=== PATIENT | male | born 1995 | race Caucasian/White ===

== ENCOUNTER 2019-10-19 17:35 | Emergency (ER) | payer SELFPAY ==
[~2019-10-19] VITALS: Ht 172.7 cm; Wt 79.4 kg
[2019-10-19 20:58] VITALS: BP 125/80
[2019-10-19] MEDS ORDERED: HYDROcodone-ACET 5/325MG TAB PO ONE (21:00)
== END 2019-10-19 22:32 | disposition home or self-care (01) ==
LOC: ER 17:35
DX: S06.0X0A Concussion without loss of consciousness, initial encounter (principal); S30.1XXA Contusion of abdominal wall, initial encounter; N39.0 Urinary tract infection, site not specified; M62.838 Other muscle spasm; K42.9 Umbilical hernia without obstruction or gangrene; V43.52XA Car driver injured in collision with other type car in traffic accident, initial encounter; Y93.89 Activity, other specified; Y99.8 Other external cause status; Y92.410 Unspecified street and highway as the place of occurrence of the external cause
CPT/HCPCS: 70450; 71046; 72040; 72170; 74176; 81002

== ENCOUNTER → 2019-12-16 | Emergency (ER) | payer SELFPAY ==
[~2019-12-16] VITALS: Ht 172.7 cm; Wt 85.7 kg
[~2019-12-16] MED LIST: ALBUTEROL SULF 2.5 MG/0.5ML(0.5%) NEB SOLN NEB ONE; IPRATROPIUM BROM 0.5 MG/2.5ML INH SOL NEB ONE
[2019-12-16 00:52] VITALS: BP 144/73
== END | disposition home or self-care (01) ==
LOC: ER 00:36
DX: J20.9 Acute bronchitis, unspecified (principal)
CPT/HCPCS: 71045; 94640; 99283; J7644

== ENCOUNTER 2019-12-18 16:09 | Emergency (ER) | payer SELFPAY ==
[~2019-12-18] VITALS: Ht 172.7 cm; Wt 77.1 kg
[2019-12-18 17:56] LABS: Basophils # (auto) 0 10 ^3/uL (0-0.2); Basophils % (auto) 0.2 % (0.0-2.0); Eosinophils # (auto) 0 10 ^3/uL (0-0.8); Eosinophils % (auto) 0.2 % (0.0-7.0); Hematocrit 49.3 % (41.0-53.0); Hemoglobin 16.4 g/dL (13.5-17.5); Lymphocytes # (auto) 2.6 10 ^3/uL (0.4-5.4); Lymphocytes % (auto) 19.4 % (10.0-50.0); Mean Corpuscular Hemoglobin 31.3 pg (28.0-32.0); Mean Corpuscular Hgb Conc. 33.3 g/dL (32.0-36.0); Mean Corpuscular Volume 94.1 fL (80.0-100.0); Monocytes # (auto) 0.9 10 ^3/uL (0-1.3); Monocytes % (auto) 6.5 % (0.0-12.0); Neutrophils # (auto) 9.8 10 ^3/uL (1.6-8.6); Neutrophils % (auto) 73.7 % (37.0-80.0); Platelet Count (auto) 326 10^3/uL (140-450); Red Blood Cells 5.24 10^6/uL (4.5-5.90); Red Cell Distribution Width 13.2 % (11.8-14.3); White Blood Cell 13.3 10^3/uL (4.4-10.8)
[2019-12-18 18:11] LABS: Albumin 4.5 g/dL (3.4-5.0); Anion Gap 8 (5-15); BUN/Creatinine Ratio 13.8; Blood Urea Nitrogen 15 mg/dL (7-18); Calcium 9.6 mg/dL (8.5-10.1); Carbon Dioxide 25 mmol/L (21-32); Chloride 103 mmol/L (98-107); GFR African American 106 mL/min; GFR Non-African American 88 mL/min; Glucose 104 mg/dL (74-106); Potassium 3.9 mmol/L (3.5-5.1); Sodium 136 mmol/L (136-145)
[2019-12-18 18:16] LABS: Alanine Aminotransferase 40 U/L (16-61); Alkaline Phosphatase 66 U/L (45-117); Aspartate Aminotransferase 26 U/L (15-37); Bilirubin, Total 0.9 mg/dL (0.2-1.0); Total Protein 8.4 g/dL (6.4-8.2)
[2019-12-18 19:41] VITALS: BP 119/70
== END 2019-12-18 19:45 | disposition home or self-care (01) ==
LOC: ER 16:09
DX: F41.9 Anxiety disorder, unspecified (principal); J45.909 Unspecified asthma, uncomplicated
CPT/HCPCS: 36415; 71046; 80053; 84484; 85025

== ENCOUNTER 2019-12-23 17:58 | Emergency (ER) | payer BC, OTHER ==
[~2019-12-23] VITALS: Ht 172.7 cm; Wt 77.1 kg
[2019-12-23 18:30] VITALS: BP 136/72
[2019-12-23] MEDS ORDERED: ALPRAZolam 0.5 MG TAB PO ONE (19:00)
== END 2019-12-23 19:29 | disposition home or self-care (01) ==
LOC: ER 17:58
DX: F41.9 Anxiety disorder, unspecified (principal); Z76.0 Encounter for issue of repeat prescription